=== PATIENT | male | born 1955 | race Hispanic/Latino ===

== ENCOUNTER 2018-05-30 06:20 | Inpatient (IN) | payer OTHER ==
[2018-05-30 07:58] VITALS: BMI 27.8
[2018-05-30] MEDS ORDERED: Verapamil 2 ML ONE (09:37)
[2018-05-30] MEDS ORDERED: Nitroglycerin 50mg in D5W 50 MG/250 ML BOTTLE IV ONE (09:37)
[2018-05-30] MEDS ORDERED: Lidocaine 2% Inj (20ml) ONE (09:38)
[2018-05-30] MEDS ORDERED: Midazolam 2 MG/2 ML VIAL ONE ×3 (09:49→10:50)
[2018-05-30] MEDS ORDERED: Iodixanol 320 MG/ML 200 ML BOTTLE IV ONE (09:49)
[2018-05-30 12:20] VITALS: TEMP 98
[2018-05-30 14:33] VITALS: PULSE 69; RESP 23; O2SAT 100
[2018-05-30 14:35] VITALS: BP 137/68
--- NOTE | 2018-05-30 18:07 | CON ---
DATE: 05/30/2018 REASON FOR CONSULTATION AND FOLLOWUP: Complete heart block, evaluation for pacemaker. BRIEF CLINICAL HISTORY: This is a 63-year-old male with past medical history of diabetes, hypertension, hyperlipidemia, admitted to [facility] with dizziness and nausea, found to be in complete heart block third degree. The patient was transferred for evaluation of the pacemaker. PAST MEDICAL HISTORY: Significant for diabetes, hypertension, hyperlipidemia. SOCIAL HISTORY: Denies any smoking, quit smoking many years ago. Denies any history of alcohol abuse, but he usually drink socially. CURRENT MEDICATIONS: Before the patient came into the hospital was taking metformin 1000 p.o. b.i.d., ramipril 5 mg daily. PAST SURGICAL HISTORY: History of possible tonsillectomy, when he was very young, otherwise no other surgical significant history except tonsillectomy at younger age. RECENT CARDIAC WORKUP: The patient had echocardiography done on 05/27/[address] [facility]. There is a normal systolic function, borderline dilated LA, mild MR, mild TR. LABORATORY DATA: Blood workup as follows, WBC 7.5, hemoglobin 14, hematocrit 41.2, platelet count 188. Chemistry shows sodium 140, potassium 4, chloride 103, carbon dioxide 28, anion gap of 18, BUN 11, creatinine 0.8. Troponin is 0.012 x3 negative. EKG showed in the [place], complete heart block. IMPRESSION AND PLAN: A 63-year-old male with past medical history of diabetes, hypertension, not in beta-d[place], on KRISHNA inhibitors and metformin, who was complaining that history goes back to a year and half, the patient feels that every now and then, feels dizzy and going to passed out, but he did not pay attention. At this time, he admitted with and found to be complete heart block, so the patient transferred for pacemaker. Prior to pacemaker, Dr. Hutchinson want to do the quick left heart catheterization in high-grade right coronary artery blockage. After that, we will do the pacemaker. Risks, benefits, and alternatives discussed with the patient, also called the of the patient, Jessica Joy, telephone #[phone]. Explained the procedure, risks, benefits, and alternative. The patient is agreed to proceed for pacemaker after the cardiac catheterization. Thank you, Dr. Hutchinson, for providing us the opportunity in taking of the patient, Cristhian Jean-Baptiste. Further recommendations after the cardiac catheterization. Lucius Browning MD
--- NOTE | 2018-06-01 09:00 | CARDCATH ---
PROCEDURE DATE: 05/30/2018 INDICATIONS: This is a 63-year-old male who presented to [facility] with complaints of dizziness and atypical chest pain. He was noted to be in complete heart block and was admitted to the ICU. He was initially on dopamine for stabilization of the heart rhythm and subsequently transferred over to [place] for evaluation of underlying CAD. PROCEDURES PERFORMED: Left heart catheterization with selective left and right coronary angiogram via left distal radial arterial access approach, transvenous pacemaker placement via right 6[place] femoral venous access site. TECHNIQUES OF PROCEDURE: After obtaining informed consent, the patient was brought to the cardiac cath suite in post-absorptive and non-sedated state. The patient was prepped and draped in the usual sterile fashion. A 2% lidocaine was used for infiltration of anesthesia. Using modified Seldinger technique, a 6-[place] sheath was introduced into the left distal radial artery. Subsequently, under fluoroscopic guidance over a J-wire, a JL4 and JR4 diagnostic catheters were used to engage the left and right coronary system. Angiograms were obtained in different orthogonal views. Subsequently, a pigtail catheter was advanced into the LV and LV gram was obtained in the BARRAZA view. HEMODYNAMICS: Left ventricular end-diastolic pressure was 19 mmHg. There was no gradient noted upon the aortic valve. There was no AI, no MD. Left ventricular ejection fraction estimated to be 55% to 60%. CORONARY ANATOMY: Left main is a large sized vessel, has ostial 50% stenosis. Distal left main has moderate disease. Ostial LAD has a 95% stenosis. Diagonal 1 has a 70% stenosis. Left circumflex runs in the AV groove is a large sized vessel, has a mid 70% stenosis. Distal left circumflex has tandem 95% two lesions. Obtuse marginal is a large sized vessel and has a proximal 60% stenosis. Right coronary artery is a large sized vessel, has a mid 40% stenosis. PDA has a mid 95% stenosis with DMITRIY III flow. IMPRESSION: Severe multivessel disease, normal ejection fraction. Intervention intraaortic balloon pump was placed for hemodynamic stabilization. TVP was placed for stabilization of cardiac rhythm. RECOMMENDATIONS: The patient to be transferred emergently to [place] to undergo triple-vessel bypass surgery by Dr. Emmanuel Guajardo. Cornell Hutchinson MD [facility] # [id number]
== END 2018-05-30 17:00 | disposition short-term general hospital (02) | DRG 272 ==
LOC: ICU 06:20 → MERGE 06:20 → CATH 06:20 → EDSTATUS 07:03
PROVIDERS: ADMIT Internal Medicine Interventional Cardiology; ATTEND Internal Medicine Interventional Cardiology
PROC: 4A023N7 Measurement of Cardiac Sampling and Pressure, Left Heart, Percutaneous Approach (ICD-10-PCS; principal; 2018-05-30)
PROC: 5A02210 Assistance with Cardiac Output using Balloon Pump, Continuous (ICD-10-PCS; 2018-05-30)
PROC: B2151ZZ Fluoroscopy of Left Heart using Low Osmolar Contrast (ICD-10-PCS; 2018-05-30)
PROC: B2111ZZ Fluoroscopy of Multiple Coronary Arteries using Low Osmolar Contrast (ICD-10-PCS; 2018-05-30)
PROC: 5A1223Z Performance of Cardiac Pacing, Continuous (ICD-10-PCS; 2018-05-30)
DX: I44.2 Atrioventricular block, complete (principal); I25.10 Atherosclerotic heart disease of native coronary artery without angina pectoris; I10 Essential (primary) hypertension; E11.9 Type 2 diabetes mellitus without complications; E78.5 Hyperlipidemia, unspecified